=== PATIENT | female | born 1980 | race American Indian/Alaskan Native ===

== ENCOUNTER 2017-10-06 13:32 | Emergency (ER) | payer OTHER ==
[2017-10-06] MEDS ORDERED: ZOFRAN IV ONE (13:43)
[2017-10-06] MEDS ORDERED: NITRO-BID 2% TP ONE (13:43)
[2017-10-06] MEDS ORDERED: MORPHINE IV ONE ×2 (13:43→15:03)
[2017-10-06 14:09] LABS: Basophils # (Auto) 0.1 K/mm3 (0.0-0.1); Basophils % (Auto) 1.3 % (0.0-1.8); Eosinophils # (Auto) 0.1 K/mm3 (0.0-0.4); Eosinophils % (Auto) 1.6 % (0.0-4.3); Hematocrit 40.1 % (30.3-42.9); Hemoglobin 13.9 gm/dl (10.1-14.3); Lymphocytes # (Auto) 1.7 K/mm3 (1.2-5.4); Lymphocytes % (Auto) 23.5 % (13.4-35.0); Mean Corpuscular HGB Conc 35 % (30-34); Mean Corpuscular Hemoglobin 33 pg (28-32); Mean Corpuscular Volume 94 fl (79-97); Monocytes # (Auto) 0.5 K/mm3 (0.0-0.8); Monocytes % (Auto) 7.6 % (0.0-7.3); Platelet Count 302 K/mm3 (140-440); Red Blood Count 4.27 M/mm3 (3.65-5.03); Red Cell Distribution Width 12.7 % (13.2-15.2)
[2017-10-06 14:19] LABS: INR 1.1 (0.87-1.13)
[2017-10-06 14:20] LABS: Partial Thromboplastin Time 29.1 Sec. (24.2-36.6)
[2017-10-06 14:21] LABS: BUN/Creatinine Ratio 24; Blood Urea Nitrogen 12 mg/dL (7-17); Calcium 9.1 mg/dL (8.4-10.2); Hemolysis Index 7
[2017-10-06 14:23] LABS: Creatine Kinase MB 2.9 ng/mL (0.0-4.0)
--- NOTE | 2017-10-06 14:28 | Emergency Department Report ---
ED Chest Pain HPI - General Stated Complaint: CHEST PAIN Time Seen by Provider: 10/06/17 13:42 Source: patient, EMS Mode of arrival: Stretcher Limitations: No Limitations - History of Present Illness Initial Comments: 37-year-old female the past medical history of cardiac or PE or an ASD defect, hypertension, and a "leaky valve" presents in the senior living with substernal chest tightness that started this a.m. Tightness is constant and associated with shortness of breath and diaphoresis. Denies nausea or vomiting. Patient initially reported pain 20/10 in intensity and received 3 nitroglycerin and aspirin 324 mg in route. Now patient states pain at 10/10 in intensity. Patient has been senior living for last 3 days and is not currently on any medications. Patient has been off for her blood pressure medication, digoxin, and unknown other medication since moving to the [facility] in December. She does not have a contact lens manufacturer. - Related Data Allergies Allergy/AdvReac Type Severity Reaction Status Date / Time No Known Allergies Allergy Unverified 10/06/17 13:47 Heart Score - HEART Score History: Slightly suspicious EKG: Non-specific Age: < 45 Risk factors: 1-2 risk factors Troponin: < normal limit HEART Score: 2 ED Review of Systems ROS: Stated complaint: CHEST PAIN Other details as noted in HPI Comment: All other systems reviewed and negative Other: Constitutional: No fevers chills Eyes: No eye pain visual changes ENT: No ear pain or throat pain Neck: Denies pain Respiratory: Denies cough wheezing Cardiovascular: Denies chest pain, palpitations, syncope GI: Denies abdominal pain, nausea, vomiting, diarrhea : Denies dysuria Musculoskeletal: Denies back pain Skin: Denies rash, lesions, erythema Neurologic: Denies headache, numbness, weakness Psychiatric: Denies suicidal ideation, hallucinations ED Past Medical Hx - Past Medical History Hx Hypertension: Yes Additional medical history: "leaky valve" - Surgical History Additional Surgical History: atrial septal defect repair ED Physical Exam - Other Other exam information: General: No limitations, patient is alert in no acute distress Head exam: Atraumatic, normocephalic Eyes exam: Normal appearance ENT: Moist mucous membrane, normal oropharynx Neck exam: Normal inspection, full range of motion, no meningismus nontender Respiratory exam: Clear to auscultation bilateral, no wheezes, rales, crackles Cardiovascular: Normal rate and rhythm, previous sternotomy scar, chest wall nontender Abdomen: Soft, nondistended, and nontender, with normal bowel sounds, no rebound, or guarding Extremity: Full range of motion normal inspection no deformity, no calf tenderness or edema Back: Normal Inspection, full range of motion, no tenderness Neurologic: Alert, oriented x3, cranial nerves intact, no motor or sensory deficit Psychiatric: normal affect, normal mood Skin: Warm, dry, intact ED Course Vital Signs 10/06/17 10/06/17 10/06/17 13:47 14:01 14:31 Temperature 97.3 F L Pulse Rate 98 H 92 H 93 H Pulse Rate [ Bilateral Upper Lobe] Respiratory 22 15 13 Rate Respiratory Rate [Bilateral Upper Lobe] Blood Pressure 135/94 Blood Pressure [Left] O2 Sat by Pulse 100 98 98 Oximetry 10/06/17 10/06/17 10/06/17 14:45 15:01 15:06 Temperature Pulse Rate 92 H 84 Pulse Rate [ 88 89 Bilateral Upper Lobe] Respiratory 21 17 Rate Respiratory 18 18 Rate [Bilateral Upper Lobe] Blood Pressure Blood Pressure [Left] O2 Sat by Pulse 100 100 Oximetry 10/06/17 10/06/17 10/06/17 15:15 15:31 15:40 Temperature Pulse Rate 121 H 94 H 97 H Pulse Rate [ Bilateral Upper Lobe] Respiratory 31 H 15 18 Rate Respiratory Rate [Bilateral Upper Lobe] Blood Pressure Blood Pressure 152/84 [Left] O2 Sat by Pulse 100 99 99 Oximetry 10/06/17 16:01 Temperature Pulse Rate 89 Pulse Rate [ Bilateral Upper Lobe] Respiratory 14 Rate Respiratory Rate [Bilateral Upper Lobe] Blood Pressure 151/92 Blood Pressure [Left] O2 Sat by Pulse 97 Oximetry - Reevaluation(s) Reevaluation #1: 10/06/17 14:32 In the ED patient treated with morphine, Zofran, Nitropaste Reevaluation #2: 10/06/17 2:48 PM update The patient received nitroglycerin paste, morphine, and Zofran and still feels tight. Patient states she's been coughing for 3 days and has some wheezing today. We will try additional morphine and DuoNeb patient gets some relief. Lungs clear to auscultation. Denies a history of asthma. Patient being released from police custody at this time. Will obtain peak flow before and after treatment to see if there is any improvement. Reevaluation #3: 10/06/17 14:58 Respiratory therapist assessed patient. Agrees lungs are clear to auscultation. Predicted peak flow 440 and pt did 250 with poor effort. Will reassess after tx 10/06/17 Peak flow is only 300 after nebulized treatment however, once again poor effort - Consultations Consultation #1: 10/06/17 at 1:29 PM EMS EKG discussed with the on-call [facility] contact lens manufacturer Dr. Schmid. No signs of ST elevation IL. No indication for emergent care if it is time. IDALMIS score - Idalmis Score Age > 65: (0) No Aspirin use within the Past 7 Days: (0) No 3 or more CAD Risk Factors: (0) No 2 or more Angina events in past 24 hrs: (1) Yes Known CAD with more than 50% Stenosis: (0) No Elevated Cardiac Markers: (0) No ST Deviation Greater than 0.5mm: (0) No IDALMIS Score: 1 ED Medical Decision Making - Lab Data Result diagrams: 10/06/17 13:47 10/06/17 13:51 Lab Results 10/06/17 10/06/17 10/06/17 Range/Units 13:44 13:47 13:47 WBC 7.2 (4.5-11.0) K/mm3 RBC 4.27 (3.65-5.03) M/mm3 Hgb 13.9 (10.1-14.3) gm/dl Hct 40.1 (30.3-42.9) % MCV 94 (79-97) fl MCH 33 H (28-32) pg MCHC 35 H (30-34) % RDW 12.7 L (13.2-15.2) % Plt Count 302 (140-440) K/mm3 Lymph % (Auto) 23.5 (13.4-35.0) % Isabella % (Auto) 7.6 H (0.0-7.3) % Eos % (Auto) 1.6 (0.0-4.3) % Baso % (Auto) 1.3 (0.0-1.8) % Lymph # 1.7 (1.2-5.4) K/mm3 Isabella # 0.5 (0.0-0.8) K/mm3 Eos # 0.1 (0.0-0.4) K/mm3 Baso # 0.1 (0.0-0.1) K/mm3 Seg Neutrophils % 66.0 (40.0-70.0) % Seg Neutrophils # 4.8 (1.8-7.7) K/mm3 PT (12.2-14.9) Sec. INR (0.87-1.13) APTT (24.2-36.6) Sec. Sodium (137-145) mmol/L Potassium (3.6-5.0) mmol/L Chloride (98-107) mmol/L Carbon Dioxide (22-30) mmol/L Anion Gap mmol/L BUN (7-17) mg/dL Creatinine (0.7-1.2) mg/dL Estimated GFR ml/min BUN/Creatinine Ratio % Glucose (65-100) mg/dL Calcium (8.4-10.2) mg/dL Total Creatine Kinase 154 H (30-135) units/L CK-MB (CK-2) 2.9 (0.0-4.0) ng/mL CK-MB (CK-2) Rel Index 1.8 (0-4) Troponin T (0.00-0.029) ng/mL HCG, Qual Negative (Negative) 10/06/17 10/06/17 Range/Units 13:51 13:52 WBC (4.5-11.0) K/mm3 RBC (3.65-5.03) M/mm3 Hgb (10.1-14.3) gm/dl Hct (30.3-42.9) % MCV (79-97) fl MCH (28-32) pg MCHC (30-34) % RDW (13.2-15.2) % Plt Count (140-440) K/mm3 Lymph % (Auto) (13.4-35.0) % Isabella % (Auto) (0.0-7.3) % Eos % (Auto) (0.0-4.3) % Baso % (Auto) (0.0-1.8) % Lymph # (1.2-5.4) K/mm3 Isabella # (0.0-0.8) K/mm3 Eos # (0.0-0.4) K/mm3 Baso # (0.0-0.1) K/mm3 Seg Neutrophils % (40.0-70.0) % Seg Neutrophils # (1.8-7.7) K/mm3 PT 14.8 (12.2-14.9) Sec. INR 1.10 (0.87-1.13) APTT 29.1 (24.2-36.6) Sec. Sodium 140 (137-145) mmol/L Potassium 3.2 L (3.6-5.0) mmol/L Chloride 100.1 (98-107) mmol/L Carbon Dioxide 21 L (22-30) mmol/L Anion Gap 22 mmol/L BUN 12 (7-17) mg/dL Creatinine 0.5 L (0.7-1.2) mg/dL Estimated GFR > 60 ml/min BUN/Creatinine Ratio 24 % Glucose 97 (65-100) mg/dL Calcium 9.1 (8.4-10.2) mg/dL Total Creatine Kinase (30-135) units/L CK-MB (CK-2) (0.0-4.0) ng/mL CK-MB (CK-2) Rel Index (0-4) Troponin T < 0.010 (0.00-0.029) ng/mL HCG, Qual (Negative) - EKG Data -: EKG Interpreted by Me EKG shows normal: sinus rhythm, axis (-88), QRS complexes (171), ST-T waves ( ant st depress) Rate: normal (RBBB, LAFB ) - EKG Data When compared to previous EKG there are: previous EKG unavailable 10/06/17 14:41 EKG obtained in the ED does not show any acute changes compared to EMS EKG - Radiology Data Radiology results: image reviewed interpreted by me: Read by me: Chest x-ray one view: No acute findings, previous sternotomy - Medical Decision Making Plan to admit patient to hospital for further cardiac workup. Cardiac history unclear. Hospitalist informed formation. No signs of ST elevation IL at this time. Initial cardiac enzymes negative. - Differential Diagnosis IL, anxiety, unstable angina, atypical chest pain Critical Care Time: No Critical care attestation.: If time is entered above; I have spent that time in minutes in the direct care of this critically ill patient, excluding procedure time. ED Disposition Clinical Impression: Hx of heart surgery, Hypokalemia, Chest tightness Disposition: OP ADMIT IP TO THIS HOSP Is pt being admited?: Yes Condition: Stable Time of Disposition: 14:43 (Dr Smith/hosp)
[2017-10-06] MEDS ORDERED: K-DUR PO ONE (14:31)
[2017-10-06] MEDS ORDERED: DUONEB *Not for PRN Use IH ONE (14:50)
--- NOTE | 2017-10-06 14:57 | XRay Report ---
Single view chest: History: Chest pain. Findings: Cardiomegaly. Trachea is midline. No consolidation, pneumothorax or pleural effusion. Impression: No acute cardiopulmonary findings.
--- NOTE | 2017-10-06 19:28 | Cat Scan Report ---
FINAL REPORT EXAM: CT ANGIO CHEST HISTORY: chest pain TECHNIQUE: Enhanced CT of the chest at 1.25 mm axial intervals following a pulmonary embolism protocol. Coronal and sagittal imaging were also obtained. Coronal oblique MIP projections were obtained. Contrast: Intravenous contrast given. PRIORS: None. FINDINGS: There is no evidence for pulmonary embolism in the main pulmonary artery, right and left pulmonary arteries or their major distributions. However, CT does not exclude distal pulmonary emboli. Otherwise, the lung parenchyma are expanded and clear with no evidence for parenchymal nodules, infiltrates, congestion, or pleural effusion. There is no evidence for mediastinal, hilar, or axillary adenopathy. Cardiovascular structures are within normal limits. No evidence for ventricular chamber enlargement is seen. Images through the lung bases include the upper abdomen which show no abnormalities of the visualized abdominal viscera. Bony structures demonstrate no focal abnormalities. Median sternotomy wires are noted. IMPRESSION: No evidence for pulmonary embolism. Negative CT of the chest.
--- NOTE | 2017-10-06 20:32 | History and Physical Report ---
History of Present Illness Chief complaint: I have pain in my chest History of present illness: 37 YO Female with HTN, Obesity presents to ED for evaluation. Pt states that she has experienced pain in her chest for the past 3 months. Pt states that her pain was 20/10 but is now 10/10, substernal, associated with shortness of breath and diaphoresis. Pt denies fever, chills, nausea or vomiting. Patient has been residential for last 3 days and is not currently on any medications. Patient has been off for her blood pressure medication, digoxin, and unknown other medication since moving to the [facility] in December. She does not have a high value associate. Pt treated with serial cardiac enzymes, ekg, telemetry with evidence of acute ischemia. Pt underwent CTA chest which was unremarkable. Pt symptoms resolved with supportive care. Pt discharged home and instructed to resume home medication and F/U pcp 1wk, and cardiology 1wk. Past History Past Medical History: hypertension Past Surgical History: bowel surgery (ASD repair) Social history: single. denies: smoking, alcohol abuse, prescription drug abuse Family history: hypertension Medications and Allergies Allergies Allergy/AdvReac Type Severity Reaction Status Date / Time No Known Allergies Allergy Unverified 10/06/17 13:47 Home Medications Medication Instructions Recorded Confirmed Last Taken Type Pantoprazole [Protonix] 40 mg PO QDAY #30 tablet 10/06/17 Unknown Rx Review of Systems Constitutional: no weight loss, no weight gain, no fever, no chills Ears, nose, mouth and throat: no ear pain, no ear discharge, no tinnitis, no decreased hearing, no nose pain Breasts: no change in shape, no swelling, no mass Cardiovascular: chest pain, no orthopnea, no palpitations, no rapid/irregular heart beat, no edema Respiratory: no cough, no cough with sputum, no excessive sputum, no hemoptysis Gastrointestinal: no nausea, no vomiting, no diarrhea Genitourinary Female: no pelvic pain, no flank pain, no menorrhagia Rectal: no pain, no incontinence, no bleeding Integumentary: no rash, no pruritis, no redness, no sores, no wounds Neurological: no weakness, no parathesias, no numbness, no tingling, no seizures Psychiatric: no anxiety, no memory loss, no change in sleep habits, no sleep disturbances, no insomnia Endocrine: no heat intolerance, no polyphagia, no excessive thirst, no polydipsia, no polyuria Hematologic/Lymphatic: no easy bruising, no easy bleeding, no lymphadenopathy, no lymphedema Allergic/Immunologic: no urticaria, no allergic rhinitis, no wheezing, no persistent infections, no anaphylaxis Exam - Constitutional Vitals: Temp Pulse Resp BP Pulse Ox 97.3 F L 77 12 106/64 97 10/06/17 13:47 10/06/17 18:43 10/06/17 18:43 10/06/17 18:43 10/06/17 18:01 General appearance: Present: no acute distress, well-nourished, obese - EENT Eyes: Present: PERRL ENT: hearing intact, clear oral mucosa - Neck Neck: Present: supple, normal ROM - Respiratory Respiratory effort: normal Respiratory: bilateral: CTA - Cardiovascular Heart Sounds: Present: S1 & S2. Absent: rub, click - Extremities Extremities: pulses symmetrical, No edema Peripheral Pulses: within normal limits - Abdominal General gastrointestinal: Present: soft, non-tender, non-distended, normal bowel sounds Female genitourinary: Present: normal - Integumentary Integumentary: Present: clear, warm, dry - Musculoskeletal Musculoskeletal: gait normal, strength equal bilaterally - Psychiatric Psychiatric: appropriate mood/affect, intact judgment & insight - Neurologic Neurologic: CNII-XII intact, moves all extremities Results - Labs CBC & Chem 7: 10/06/17 13:47 10/06/17 13:51 Labs: Abnormal lab results 10/06/17 10/06/17 10/06/17 Range/Units 13:44 13:47 13:51 MCH 33 H (28-32) pg MCHC 35 H (30-34) % RDW 12.7 L (13.2-15.2) % Arroyo % (Auto) 7.6 H (0.0-7.3) % Potassium 3.2 L (3.6-5.0) mmol/L Carbon Dioxide 21 L (22-30) mmol/L Creatinine 0.5 L (0.7-1.2) mg/dL Total Creatine Kinase 154 H (30-135) units/L Assessment and Plan - Patient Problems (1) Atypical chest pain Status: Acute Plan to address problem: Serial cardiac enzymes, ekg, telemetry unremarkable, CTA chest negative for PE. (2) GERD (gastroesophageal reflux disease) Status: Acute Plan to address problem: PPI therapy (3) DVT prophylaxis Status: Acute
[2017-10-06 21:11] VITALS: BP 151/92
== END 2017-10-06 21:35 | disposition admitted as inpatient to this hospital (09) ==
LOC: ED 13:32 → EEVIPCON 13:32 → ED 21:35
DX: R07.89 Other chest pain (principal); E87.6 Hypokalemia; I10 Essential (primary) hypertension
CPT/HCPCS: 36415; 71045; 71275; 80048; 82550; 82553; 84484; 84703; 85025; 85610; 85730; 93005; 93010; 94640; 96374; 96375; 99285; J2270; J2405; Q9967

== ENCOUNTER 2017-10-23 12:21 | Emergency (ER) | payer SELFPAY ==
[2017-10-23 14:26] LABS: Basophils # (Auto) 0.1 K/mm3 (0.0-0.1); Basophils % (Auto) 1.9 % (0.0-1.8); Eosinophils # (Auto) 0.3 K/mm3 (0.0-0.4); Eosinophils % (Auto) 5.2 % (0.0-4.3); Hematocrit 37.4 % (30.3-42.9); Hemoglobin 12.7 gm/dl (10.1-14.3); Lymphocytes # (Auto) 2.1 K/mm3 (1.2-5.4); Lymphocytes % (Auto) 38.1 % (13.4-35.0); Mean Corpuscular HGB Conc 34 % (30-34); Mean Corpuscular Hemoglobin 32 pg (28-32); Mean Corpuscular Volume 95 fl (79-97); Monocytes # (Auto) 0.4 K/mm3 (0.0-0.8); Monocytes % (Auto) 7.3 % (0.0-7.3); Platelet Count 293 K/mm3 (140-440); Red Blood Count 3.93 M/mm3 (3.65-5.03); Red Cell Distribution Width 13.5 % (13.2-15.2)
[2017-10-23 14:36] LABS: Bacteria,Urine 1+ /HPF (Negative); Bilirubin,Urine NEG (Negative); Blood,Urine NEG (Negative); Color,Urine Yellow (Yellow); Nitrite,Urine NEG (Negative); Protein,Urine <15 mg/dL mg/dL (Negative); Urobilinogen,Urine < 2.0 mg/dL (<2.0)
[2017-10-23 17:20] VITALS: BP 125/74
--- NOTE | 2017-10-23 19:53 | Emergency Department Report ---
ED Female HPI - General Chief complaint: Vaginal Bleeding Stated complaint: VAGINAL BLEEDING Time Seen by Provider: 10/23/17 19:15 Source: patient Mode of arrival: Ambulatory Limitations: No Limitations - History of Present Illness Initial comments: pt is a 37 y/o aaf who presents for vaginal bleeding x 3 weeks no vaginal pain no vaginal discharge no back pain no fever no chills pt denies dizziness no lightheadedness no n/v MD Complaint: vaginal bleeding Onset/Timin -: week(s) Radiation: non-radiating Severity: moderate Severity scale (0 -10): 3 Quality: other (no pain ) Consistency: constant Improves with: none Worsens with: none Are you Now?: No Last Menstrual Period: 09/23/17 EDC: 06/30/18 Associated Symptoms: vaginal bleeding. denies: vaginal discharge, abdominal pain, nausea/vomiting, fever/chills, headaches, loss of appetite, dysuria, hematuria, rash, shortness of breath, syncope, weakness - Related Data Sexually active: Yes Previous Rx's Medication Instructions Recorded Last Taken Type Pantoprazole [Protonix] 40 mg PO QDAY #30 tablet 10/06/17 Unknown Rx medroxyPROGESTERone ACETATE 10 mg PO QDAY #10 tablet 10/23/17 Unknown Rx [Provera] Allergies Allergy/AdvReac Type Severity Reaction Status Date / Time No Known Allergies Allergy Verified 10/23/17 13:09 ED Review of Systems ROS: Stated complaint: VAGINAL BLEEDING Other details as noted in HPI Constitutional: denies: chills, fever Eyes: denies: eye pain, eye discharge, vision change ENT: denies: ear pain, throat pain Respiratory: denies: cough, shortness of breath, wheezing Cardiovascular: denies: chest pain, palpitations Endocrine: no symptoms reported Gastrointestinal: denies: abdominal pain, nausea, diarrhea Genitourinary: abnormal menses. denies: urgency, dysuria, frequency, hematuria , discharge, dyspareunia Musculoskeletal: denies: back pain, joint swelling, arthralgia Skin: denies: rash, lesions Neurological: denies: headache, weakness, paresthesias Psychiatric: denies: anxiety, depression Hematological/Lymphatic: denies: easy bleeding, easy bruising ED Past Medical Hx - Past Medical History Hx Hypertension: Yes Additional medical history: "leaky valve" - Surgical History Additional Surgical History: atrial septal defect repair - Social History Smoking Status: Current Some Day Smoker Substance Use Type: Alcohol - Medications Home Medications: Home Medications Medication Instructions Recorded Confirmed Last Taken Type Pantoprazole [Protonix] 40 mg PO QDAY #30 tablet 10/06/17 Unknown Rx medroxyPROGESTERone ACETATE 10 mg PO QDAY #10 tablet 10/23/17 Unknown Rx [Provera] ED Physical Exam - General Limitations: No Limitations General appearance: alert, in no apparent distress - Head Head exam: Present: atraumatic, normocephalic - Eye Eye exam: Present: normal appearance, PERRL, EOMI Pupils: Present: normal accommodation - ENT ENT exam: Present: normal exam, mucous membranes moist - Neck Neck exam: Present: normal inspection, full ROM. Absent: tenderness, lymphadenopathy, thyromegaly - Respiratory Respiratory exam: Present: normal lung sounds bilaterally. Absent: respiratory distress, wheezes, stridor, chest wall tenderness - Cardiovascular Cardiovascular Exam: Present: regular rate, normal rhythm, normal heart sounds. Absent: systolic murmur, diastolic murmur, rubs, gallop - GI/Abdominal GI/Abdominal exam: Present: soft, normal bowel sounds. Absent: distended, tenderness, guarding, rebound, mass, bruit, pulsatile mass, hernia - Rectal Rectal exam: Present: deferred - External exam: Present: other (defered per patient ) - Extremities Exam Extremities exam: Present: normal inspection, full ROM, normal capillary refill. Absent: tenderness - Back Exam Back exam: Present: normal inspection, full ROM. Absent: tenderness, CVA tenderness (R), CVA tenderness (L), muscle spasm, paraspinal tenderness, vertebral tenderness, rash noted - Neurological Exam Neurological exam: Present: alert, oriented X3, CN II-XII intact, normal gait, reflexes normal - Psychiatric Psychiatric exam: Present: normal affect, normal mood - Skin Skin exam: Present: warm, dry, intact, normal color. Absent: rash ED Course Vital Signs 10/23/17 10/23/17 13:09 17:15 Temperature 98.4 F 98.5 F Pulse Rate 65 60 Respiratory 16 18 Rate Blood Pressure 147/85 125/74 O2 Sat by Pulse 99 98 Oximetry ED Medical Decision Making - Lab Data Result diagrams: 10/23/17 13:41 Laboratory Tests 0110/23/17 10/23/17 13:41 13:41 13:41 WBC 5.6 RBC 3.93 Hgb 12.7 Hct 37.4 MCV 95 MCH 32 MCHC 34 RDW 13.5 Plt Count 293 Lymph % (Auto) 38.1 H Bucks % (Auto) 7.3 Eos % (Auto) 5.2 H Baso % (Auto) 1.9 H Lymph # 2.1 Bucks # 0.4 Eos # 0.3 Baso # 0.1 Seg Neutrophils % 47.5 Seg Neutrophils # 2.6 HCG, Qual Negative Urine Color Urine Turbidity Urine pH Ur Specific Ent[place] Urine Protein Urine Glucose (UA) Urine Ketones Urine Blood Urine Nitrite Urine Bilirubin Urine Urobilinogen Ur Leukocyte Esterase Urine WBC (Auto) Urine RBC (Auto) U Epithel Cells (Auto) Urine Bacteria (Auto) Blood Type O POSITIVE Antibody Screen Negative 10/23/17 13:51 WBC RBC Hgb Hct MCV MCH MCHC RDW Plt Count Lymph % (Auto) Bucks % (Auto) Eos % (Auto) Baso % (Auto) Lymph # Bucks # Eos # Baso # Seg Neutrophils % Seg Neutrophils # HCG, Qual Urine Color Yellow Urine Turbidity Clear Urine pH 8.0 H Ur Specific [place] 1.021 Urine Protein <15 mg/dl Urine Glucose (UA) Neg Urine Ketones Neg Urine Blood Neg Urine Nitrite Neg Urine Bilirubin Neg Urine Urobilinogen < 2.0 Ur Leukocyte Esterase Neg Urine WBC (Auto) 1.0 Urine RBC (Auto) 3.0 U Epithel Cells (Auto) 1.0 Urine Bacteria (Auto) 1+ Blood Type Antibody Screen - Medical Decision Making pt is a 37 y/o aaf who presents for vaginal bleeding x 3 weeks no vaginal pain no vaginal discharge no back pain no fever no chills pt denies dizziness no lightheadedness no n/v , exam: pt appears well nontoxic no abdominal pain no back pain no vaginal discharge no n/v using 2 pads daily, cbc:normal, hcg: negative, plan: provera po , follow up with ELECT[employer] Dr. Lee in 2-3 days pt verbalized agreement and understanding of discharge plan. Critical care attestation.: If time is entered above; I have spent that time in minutes in the direct care of this critically ill patient, excluding procedure time. ED Disposition Clinical Impression: Abnormal uterine bleeding (AUB) Disposition: DC- TO HOME OR SELFCARE Is pt being admited?: No Does the pt Need Aspirin: No Condition: Good Instructions: Dysmenorrhea (ED) Prescriptions: medroxyPROGESTERone ACETATE [Provera] 10 mg PO QDAY #10 tablet Referrals: PRIMARY CARE, [Primary Care Provider] - 3-5 Days Forms: Work/School Release Form(ED) Time of Disposition: 20:00
== END 2017-10-23 20:15 | disposition home or self-care (01) ==
LOC: ED 12:21
DX: N93.8 Other specified abnormal uterine and vaginal bleeding (principal); F17.200 Nicotine dependence, unspecified, uncomplicated
CPT/HCPCS: 36415; 81001; 84703; 85025; 86850; 86900; 86901; 99283

== ENCOUNTER 2018-05-16 11:48 | Emergency (ER) | payer SELFPAY ==
[2018-05-16 12:01] VITALS: BP 143/86
[2018-05-16 12:48] LABS: HCG Qualitative,Urine Negative (Negative)
[2018-05-16 13:47] LABS: Bacteria,Urine 1+ /HPF (Negative); Mucus,Urine 2+ /HPF
[2018-05-16 14:02] LABS: Color,Urine Straw (Yellow)
[2018-05-16 14:04] LABS: Bilirubin,Urine Negative (Negative); Blood,Urine 1+ (Negative)
--- NOTE | 2018-05-16 14:15 | Emergency Department Report ---
Blank Doc - Documentation Documentation: Patient is a 38-year-old female who is presenting with 1 week of dysuria with vaginal discharge. Patient also states that she has a history of uterine prolapse and is having issues with same today. Patient has a history of after her last child being born of using a pelvic elevation device however she does not have this currently. Patient does have some dysuria and some suprapubic tenderness on palpation. Focused physical exam. Patient removed to a treatment room with the bed so the pelvic exam can be performed.
[2018-05-16] MEDS ORDERED: ZITHROMAX PO ONE (15:11)
[2018-05-16] MEDS ORDERED: ROCEPHIN IM ONE (15:11)
[2018-05-16] MEDS ORDERED: XYLOCAINE 1% MPF 5 mL INFILTRATI ONE (15:11)
--- NOTE | 2018-05-16 15:20 | Emergency Department Report ---
ED Female HPI - General Chief complaint: Abdominal Pain Stated complaint: STOMACH/BACK PAIN Time Seen by Provider: 05/16/18 13:55 Source: patient Mode of arrival: Ambulatory Limitations: No Limitations - History of Present Illness Initial comments: This is a 38-year-old female nontoxic, well nourished in appearance, no acute signs of distress presents to the ED with c/o of vaginal discharge and dysuria. Patient also stated has intermittent pelvic discomfort but stated has currently resolved. Patient denies any vaginal pain or swelling. Patient denies any vaginal ulcers or lesions. Patient stated has history of prolapsed uterus 3 years ago and stated now has it again. Patient denies any nausea, vomiting, chest pain, shortness of breathe, fever, chills, headache, back pain, numbness, tingling, stiff neck. Patient denies any urinary symptoms. Patient denies any allergies or PMH. Patient stated she is concerned about STD and wants to be empirically treated. MD Complaint: vaginal discharge, dysuria, possible STD -: week(s) (1) Radiation: non-radiating Severity: mild Severity scale (0 -10): 3 Quality: burning Consistency: constant Improves with: none Worsens with: urination Associated Symptoms: vaginal discharge, dysuria. denies: vaginal bleeding, abdominal pain, nausea/vomiting, fever/chills, headaches, loss of appetite, hematuria, rash, seizure, shortness of breath, syncope, weakness - Related Data Previous Rx's Medication Instructions Recorded Last Taken Type Pantoprazole [Protonix] 40 mg PO QDAY #30 tablet 10/06/17 Unknown Rx medroxyPROGESTERone ACETATE 10 mg PO QDAY #10 tablet 10/23/17 Unknown Rx [Provera] Sulfamethoxazole/Trimethoprim 1 each PO BID #14 tablet 05/16/18 Unknown Rx [Bactrim DS TAB] metroNIDAZOLE [Flagyl] 500 mg PO Q12HR #14 tab 05/16/18 Unknown Rx Allergies Allergy/AdvReac Type Severity Reaction Status Date / Time No Known Allergies Allergy Verified 10/23/17 13:09 ED Review of Systems ROS: Stated complaint: STOMACH/BACK PAIN Other details as noted in HPI Constitutional: denies: chills, fever Eyes: denies: eye pain, eye discharge, vision change ENT: denies: ear pain, throat pain Respiratory: denies: cough, shortness of breath, wheezing Cardiovascular: denies: chest pain, palpitations Endocrine: no symptoms reported Gastrointestinal: denies: abdominal pain, nausea, vomiting, diarrhea Genitourinary: hematuria, discharge. denies: urgency, dysuria, frequency Musculoskeletal: denies: back pain, joint swelling, arthralgia Skin: denies: rash, lesions Neurological: denies: headache, weakness, paresthesias Psychiatric: denies: anxiety, depression Hematological/Lymphatic: denies: easy bleeding, easy bruising ED Past Medical Hx - Past Medical History Hx Hypertension: Yes Additional medical history: "leaky valve" - Surgical History Additional Surgical History: atrial septal defect repair - Social History Smoking Status: Current Some Day Smoker Substance Use Type: None - Medications Home Medications: Home Medications Medication Instructions Recorded Confirmed Last Taken Type Pantoprazole [Protonix] 40 mg PO QDAY #30 tablet 10/06/17 Unknown Rx medroxyPROGESTERone ACETATE 10 mg PO QDAY #10 tablet 10/23/17 Unknown Rx [Provera] Sulfamethoxazole/Trimethoprim 1 each PO BID #14 tablet 05/16/18 Unknown Rx [Bactrim DS TAB] metroNIDAZOLE [Flagyl] 500 mg PO Q12HR #14 tab 05/16/18 Unknown Rx ED Physical Exam - General Limitations: No Limitations General appearance: alert, in no apparent distress - Head Head exam: Present: atraumatic, normocephalic - Eye Eye exam: Present: normal appearance Pupils: Present: normal accommodation - ENT ENT exam: Present: normal exam, mucous membranes moist - Neck Neck exam: Present: normal inspection, full ROM. Absent: tenderness, meningismus, lymphadenopathy - Respiratory Respiratory exam: Present: normal lung sounds bilaterally. Absent: respiratory distress, wheezes, rales, rhonchi, stridor, chest wall tenderness, accessory muscle use, decreased breath sounds, prolonged expiratory - Cardiovascular Cardiovascular Exam: Present: regular rate, normal rhythm, normal heart sounds. Absent: bradycardia, tachycardia, irregular rhythm, systolic murmur, diastolic murmur, rubs, gallop - GI/Abdominal GI/Abdominal exam: Present: soft, normal bowel sounds. Absent: distended, tenderness, guarding, rebound, rigid, diminished bowel sounds - Rectal Rectal exam: Present: deferred - External exam: Present: normal external exam, other (porlapsed uterus that is reducible. Bobbin Sorter Carlene php programmer present during exam). Absent: erythema , swelling, lesions, lacerations, ecchymosis, bleeding Speculum exam: Present: cervical discharge, other (porlapsed uterus that is reducible. Bobbin Sorter Carlene php programmer present during exam). Absent: erythema , vaginal discharge, vaginal bleeding, foreign body, tissue, laceration Bi-manual exam: Present: normal bi-manual exam, other (Bobbin Sorter Carlene php programmer present during exam). Absent: cervical motion tendernes, adnexal tenderness, adnexal mass, uterine enlargement, uterine tenderness - Extremities Exam Extremities exam: Present: normal inspection, full ROM, normal capillary refill. Absent: tenderness - Back Exam Back exam: Present: normal inspection, full ROM. Absent: tenderness, CVA tenderness (R), CVA tenderness (L), muscle spasm, paraspinal tenderness, vertebral tenderness, rash noted - Neurological Exam Neurological exam: Present: alert, oriented X3, normal gait - Psychiatric Psychiatric exam: Present: normal affect, normal mood - Skin Skin exam: Present: warm, dry, intact, normal color. Absent: rash ED Course Vital Signs 05/16/18 11:57 Temperature 98.8 F Pulse Rate 88 Respiratory 16 Rate Blood Pressure 143/86 [Left] O2 Sat by Pulse 99 Oximetry - Reevaluation(s) Reevaluation #1: 05/16/18 15:26 Patient is speaking in full sentences with no signs of distress noted. ED Medical Decision Making - Medical Decision Making This is a 38-year-old female that presents with trich, BV, possible STD and UTI. Patient is stable was examined by me and Dr. Salamanca. There is no abdominal tenderness. No pelvic pain. UA obtained. Wet prep obtained. Gonorrhea chlamydia swab pending. Patient was instructed to return in 2 days for GC results. Patient wanted empirical treatment so patient received 1 g Rocephin and 1 g of azithromycin by mouth. Patient discharged with Flagyl. Patient was instructed to Follow-up with a primary care doctor in 3-5 days or if symptoms worsen and continue return to emergency room as soon as possible. At time of discharge, the patient does not seem toxic or ill in appearance. No acute signs of distress noted. Patient agrees to discharge treatment plan of care. No further questions noted by the patient. Critical care attestation.: If time is entered above; I have spent that time in minutes in the direct care of this critically ill patient, excluding procedure time. ED Disposition Clinical Impression: Possible exposure to STD, Bacterial vaginosis, Trichomonas contact, Prolapsed uterus UTI (urinary tract infection) Qualifiers: Urinary tract infection type: site unspecified Hematuria presence: without hematuria Qualified Code(s): N39.0 - Urinary tract infection, site not specified Disposition: - TO HOME OR SELFCARE Is pt being admited?: No Does the pt Need Aspirin: No Condition: Stable Instructions: Bacterial Vaginosis (ED), Trichomoniasis (ED), Metronidazole (By mouth), Urinary Tract Infection in Women (ED) Additional Instructions: Follow-up with a primary care doctor in 3-5 days or if symptoms worsen and continue return to emergency room as soon as possible. Return in 3-5 days for results of gonorrhea and chlamydia. Do not consume any alcohol while taking Flagyl. Prescriptions: metroNIDAZOLE [Flagyl] 500 mg PO Q12HR #14 tab Sulfamethoxazole/Trimethoprim [Bactrim DS TAB] 1 each PO BID #14 tablet Referrals: PRIMARY CAREMD [Primary Care Provider] - 3-5 Days YAO PARKS MD [Staff Physician] - 3-5 Days [facility] [Outside] - 3-5 Days [facility] [Outside] - 3-5 Days JOSE R LIRIANO MD [Staff Physician] - 3-5 Days Forms: STI Treatment and Prevention, Work/School Release Form(ED)
== END 2018-05-16 15:53 | disposition home or self-care (01) ==
LOC: ED 11:48
DX: N76.0 Acute vaginitis (principal); B96.89 Other specified bacterial agents as the cause of diseases classified elsewhere; N81.4 Uterovaginal prolapse, unspecified; A59.9 Trichomoniasis, unspecified; N39.0 Urinary tract infection, site not specified; I10 Essential (primary) hypertension; F17.200 Nicotine dependence, unspecified, uncomplicated
CPT/HCPCS: 81001; 81025; 87210; 87591; 96372; 99284; J0696